=== PATIENT | male | born 1975 | race Caucasian/White ===

== ENCOUNTER → 2020-03-24 | Outpatient (CLI) | payer OTHER ==
[~2020-03-24] MED LIST: GADOTERATE 5 MMOL/10ML VIAL. INT ART ONE; IOHEXOL 300 MG/ML 50 ML VIAL. INT ART ONE; LIDOCAINE 1% Multi-Dose 20 ML VIAL. ID ONE
--- NOTE | 2020-03-25 08:33 | KCIC ---
Study: Fluoroscopically guided arthrogram of the left shoulder joint for MRI Indication: Left shoulder pain and instability. Contrast: 0.1 cc Clariscan; approximately 2 cc Omnipaque 300 Technique: A timeout was performed prior to beginning the procedure in order to confirm patient identity and laterality of the injection. The risks, benefits and alternatives of the procedure were discussed. Utilizing sterile technique, fluoroscopic guidance and local anesthesia with 1% lidocaine, the left shoulder joint was accessed utilizing a 22-gauge, 3.5" spinal needle. Confirmation of needle position with a small amount of radiopaque contrast. Subsequently, 12 cc of a mixture containing 5 cc lidocaine, 15 cc saline and 0.1 cc Clariscan was injected. There were no immediate post procedure complications. Fluoroscopy time: 24 seconds Number of images obtained: 2 Impression: Technically successful fluoroscopic guided arthrogram of the left shoulder joint without immediate postprocedure complication. Electronically signed by: DEANNA TRAORE MD (03/25/2020 8:30 AM) [id number]
--- NOTE | 2020-03-25 16:45 | KCIC ---
STUDY: MRI arthrogram of the left shoulder INDICATION: Chronic left shoulder pain and instability. COMPARISON: None. TECHNIQUE: Multiplanar MR imaging of the left shoulder performed after the intra-articular injection of contrast material. The injection portion of the procedure is detailed in a separate report. FINDINGS: AC joint: Mild AC joint arthrosis. Within normal limits subacromial subdeltoid bursa. Rotator cuff: Intact rotator cuff tendons. Normal muscular bulk and signal. Labrum: The labrum is diminutive in size along its posterior half from superior to inferior but remains visualized and without a discrete tear. Small size of the anterior/superior labrum in the setting of a prominent middle glenohumeral ligament and a sublabral foramen is noted in this region as well. At the anterior/inferior glenoid, a triangular hypointense focus is seen at the expected location of the labrum but is less hypointense relative to labrum elsewhere and could represent an unusual configuration of the inferior glenohumeral ligament anterior band. Thin fluid signal undercuts this structure such as on images 16 through 18 series 4. On the ABER sequence, no normal labral tissue is identified anterior/inferior and instead there is a triangular fluid signal gap such as on image 9 series 12. The triangular structure at the anterior/inferior glenoid seen on the axial sequence is not apparent with ABER positioning. Long head biceps tendon: Intact and normally located. Cartilage: Possible small chondral delamination at the anterior/inferior glenoid, image 16 series 4. Bones: No acute fracture or focally aggressive marrow signal abnormality. Miscellaneous: Unremarkable axillary soft tissues. Impression: 1. Abnormal findings at the expected location of the anterior/inferior labrum. A triangular focus resembling the labrum is seen at this location on the axial images but no similar structure is present on the ABER sequence and instead there is a fluid filled gap where the labrum should be attached. No displaced labral fragment is seen with ABER positioning. It is favored that the labrum is degenerated/focally absent as opposed to torn and hypermobile. Arthroscopic evaluation, if deemed necessary, would allow for confirmation. 2. Possible very small chondral delamination at the anterior/inferior glenoid (image 16 series 4). 3. Intact rotator cuff and long head biceps tendon. 4. Mild AC joint arthrosis. Electronically signed by: DEANNA TRAORE MD (03/25/2020 4:42 PM) [id number]
== END | disposition home or self-care (01) ==
LOC: KCIC 13:07
PROVIDERS: ATTEND Family Medicine
DX: M19.012 Primary osteoarthritis, left shoulder (principal)
CPT/HCPCS: 23350; 73222; 77002; A9575; J3490; Q9967; 73040

== ENCOUNTER → 2020-08-05 | Outpatient (CLI) | payer OTHER ==
[~2020-08-05] MED LIST changes: +0.9 % SODIUM CHLORIDE 10 ML DISP.SYRIN. ID ONE
--- NOTE | 2020-08-05 14:59 | KCIC ---
Examination: MRI arthrogram right shoulder HISTORY: History of right shoulder pain COMPARISON: None TECHNIQUE: Multiplanar, multisequence MR imaging of the right shoulder after arthrogram injection FINDINGS: The long head of the biceps tendon within the bicipital groove. The attachment of the long head the b iceps tendon to the superior labral anchor grossly appears intact. The attachment of the subscapulari s tendon grossly appears intact. The attachment of the supraspinatus, infraspinatus, teres minor tend on appears intact. Mild degenerative changes acromioclavicular joint. There is mild increased signal identified in the superior labrum extending anteriorly and posteriorly likely small SLAP tear. The muscle bulk grossly appears unremarkable. IMPRESSION: 1. Mild increased signal identified in the superior labrum extending anteriorly and posteriorly like ly small SLAP tear. 2. Mild degenerative changes acromioclavicular joint. Electronically signed by: Ben Silvestre MD (08/05/2020 2:56 PM) [id number]
--- NOTE | 2020-08-05 17:36 | KCIC ---
EXAM: FLUOROSCOPY GUIDED right SHOULDER ARTHROGRAM History: Shoulder pain COMPARISON: None available TECHNIQUE: Consent: A written, informed consent was obtained from the patient prior to the procedure. The skin was prepped and draped in the usual fashion under aseptic precautions. Dilute 1% lidocaine w as used for local anesthesia. Under fluoroscopic guidance a 22 gauge long spinal needle was used to access the shoulder joint. 13 ml mixture of 5 mL Iodinated contrast, 5 ml lidocaine , 10 ml saline and 0.1 mL clariscan was inje cted into the shoulder joint. The patient was transferred to the MRI suite. Total fluoroscopic time 17 seconds. Total fluoroscopic images 1. No immediate complications. IMPRESSION: Technically successful right shoulder arthrogram. Electronically signed by: Ben Silvestre MD (08/05/2020 5:33 PM) [id number]
== END | disposition home or self-care (01) ==
LOC: KCIC 12:49
PROVIDERS: ATTEND Family Medicine
DX: M25.511 Pain in right shoulder (principal); M75.101 Unspecified rotator cuff tear or rupture of right shoulder, not specified as traumatic
CPT/HCPCS: 23350; 73222; 77002; A9575; J3490; Q9967; 73040